=== PATIENT | female | born 1985 | race Caucasian/White ===

== ENCOUNTER 2017-02-06 03:26 | Emergency (ER) | payer OTHER ==
[2017-02-06 03:37] VITALS: BP 127/98; PULSE 66; RESP 16; TEMP 98.6; O2SAT 98
[2017-02-06] MEDS ORDERED: FLUCONAZOLE 150 MG TAB PO ONE (03:48)
--- NOTE | 2017-02-06 03:48 | EDPHY ---
H & P Stated Complaint: VAG ITCHING AND BURNING TONIGHT USING MONISTAT NOT HELPING Time Seen by Provider: 02/06/17 03:38 HPI/ROS: Chief Complaint: Vaginal itching HPI: 31-year-old presenting with 2 days of vaginal itching and white discharge. Last menstrual period was 3 weeks ago. She is actually active. Is not ever had a set STD in the past. Is in a monogamous relationship. No fevers or chills. No abdominal pain. No urinary urgency or frequency. ROS: 10 point Review of Systems is negative except as noted in the HPI. PMH: None Social History: No smoking, no alcohol, no recreational drug use Family History: non-contributory Physical Exam: Gen: Awake, Alert, No Distress Abd: Soft, non-tender, no guarding : There is a kurd like white vaginal discharge consistent with candidiasis, mild labial inflammation Ext: no edema, non-tender Skin: no rash Neuro: CN II-XII intact, Sensation grossly intact, Strength 5/5 in bilateral upper and lower extremities - Personal History LMP (Females 10-55): 1-7 Days Ago Current Tetanus/Diphtheria Vaccine: Yes Current Tetanus Diphtheria and Acellular Pertussis (TDAP): Yes - Medical/Surgical History Hx Asthma: No Hx Chronic Respiratory Disease: No Hx Diabetes: No Hx Cardiac Disease: No Hx Renal Disease: No Hx Cirrhosis: No Hx Alcoholism: No Hx HIV/AIDS: No Hx Splenectomy or Spleen Trauma: No Other PMH: DENIES - Social History Smoking Status: Never smoked Constitutional: Initial Vital Signs Temperature (C) 37.0 C 02/06/17 03:30 Heart Rate 66 02/06/17 03:30 Respiratory Rate 16 02/06/17 03:30 Blood Pressure 127/98 H 02/06/17 03:30 O2 Sat (%) 98 02/06/17 03:30 O2 Delivery Mode Room Air Allergies/Adverse Reactions: No Known Allergies Allergy (Verified 02/06/17 03:37) Home Medications: Medication Instructions Recorded Loratadine [Allergy Relief] 10 mg PO 02/06/17 Miconazole Nitrate [MONISTAT 3] 200 mg VG 02/06/17 Minocycline HCl [Minocin] 50 mg PO 02/06/17 Medical Decision Making ED Course/Re-evaluation: 31-year-old with vaginal yeast infection. Will give her 150 mg of Diflucan orally now. Departure - Departure Disposition: Home, Routine, Self-Care Clinical Impression: Vaginal yeast infection Condition: Good Instructions: Vulvovaginal Candidiasis (ED) Additional Instructions: Follow up with primary care physician in 3-4 days if symptoms are not improving. Referrals: Omid Callejas MD [Primary Care Provider] - As per Instructions
== END 2017-02-06 04:05 | disposition home or self-care (01) ==
DX: B37.3 Candidiasis of vulva and vagina (principal)